=== PATIENT | female | born 1990 | race Caucasian/White ===

== ENCOUNTER 2019-09-20 17:42 | Emergency (ER) | payer OTHER, BC ==
[2019-09-20 18:07] VITALS: BP 129/74
--- NOTE | 2019-09-20 18:16 | ED Physician Documentation ---
PD HPI HEENT - Stated complaint Stated Complaint: LT EAR PAIN X3 WEEKS - Chief complaint Chief Complaint: Heent - History obtained from History obtained from: Patient - History of Present Illness Timing - onset: How many weeks ago (3 weeks of left ear pain and feeling blocked. Has tried ean pot and takes antihistamine. Tried ear drops without improvement. Pain worse the past few days and right ear hurting couple of days as well now too.) Timing - duration: Weeks (3) Timing - details: Gradual onset, Still present, Waxing and waning Location: Left ear Improves: No: Medication Worsens: No: Swalllowing Associated symptoms: Congestion. No: Fever, Swollen nodes, Cough Similar symptoms before: Has not had sx before Review of Systems Constitutional: denies: Fever, Chills, Myalgias Ears: reports: Ear pain. denies: Drainage/discharge, Tinnitus/ringing Nose: reports: Congestion. denies: Rhinorrhea / runny nose Throat: denies: Sore throat Respiratory: denies: Cough Skin: denies: Rash, Lesions PD PAST MEDICAL HISTORY - Past Medical History Cardiovascular: None Respiratory: None Neuro: None Endocrine/Autoimmune: None - Present Medications Home Medications: Ambulatory Orders Medication Instructions Recorded Confirmed Cephalexin [Keflex] 500 mg PO TID #21 capsule 09/20/19 Naproxen 375 mg PO BID #20 tablet 09/20/19 Spironolactone 25 mg PO BID 09/20/19 09/20/19 dexAMETHasone [Decadron] 4 mg PO DAILY #5 tablet 09/20/19 - Allergies Allergies/Adverse Reactions: Allergies Allergy/AdvReac Type Severity Reaction Status Date / Time No Known Drug Allergies Allergy Verified 09/20/19 17:55 PD ED PE NORMAL - Vitals Vital signs reviewed: Yes - General General: Alert and oriented X 3, No acute distress, Well developed/nourished - HEENT HEENT: Pharynx benign. No: Ears normal (right with some redness of TM. Canal appears okay. Left canal also normal. TM with redness and bulging/fluid behind. ) - Neck Neck: Supple, no meningeal sign, No adenopathy - Cardiac Cardiac: RRR, No murmur - Respiratory Respiratory: Clear bilaterally - Derm Derm: Normal color, Warm and dry - Neuro Neuro: Alert and oriented X 3, No motor deficit, Normal speech Results - Vitals Vitals: Vital Signs - 24 hr 09/20/19 17:55 Temperature 36.7 C Heart Rate 66 Respiratory 14 Rate Blood Pressure 129/74 O2 Saturation 98 Oxygen O2 Source Room air Departure - Departure Disposition: Home, Self Care Clinical Impression: Otitis media Qualifiers: Otitis media type: suppurative Chronicity: acute Laterality: left Recurrence: non-recurrent Spontaneous tympanic membrane rupture: without spontaneous rupture Qualified Code(s): H66.002 - Acute suppurative otitis media without spontaneous rupture of ear drum, left ear Condition: Stable Record reviewed to determine appropriate education?: Yes Instructions: ED Otitis Media Acute Adult Follow-Up: LG OCHOA [Primary Care Provider] - Prescriptions: Cephalexin [Keflex] 500 mg PO TID #21 capsule dexAMETHasone [Decadron] 4 mg PO DAILY #5 tablet Naproxen 375 mg PO BID #20 tablet Comments: Stay well-hydrated. Continue usual Tanya pot and allergy medicine. Use an anti-inflammatory such as naproxen or ibuprofen for pain and add Tylenol if needed. Also add Decadron steroid anti-inflammatory to help with some of the middle ear inflammation. Cephalexin 3 times a day for a week for the infection. Recheck if not improving well over the next few days. Discharge Date/Time: 09/20/19 18:57
[2019-09-20] MEDS ORDERED: DEXAMETHASONE 10 MG/ML VIAL PO STA (18:38)
[2019-09-20] MEDS ORDERED: cephALEXin 250 MG CAPSULE PO STA (18:38)
[2019-09-20] MEDS ORDERED: ACETAMINOPHEN 325 MG TABLET PO STA (18:38)
[2019-09-20] MEDS ORDERED: CHERRY SYRUP 10 ML UDC PO ONE (18:38)
== END 2019-09-20 18:57 | disposition home or self-care (01) ==
LOC: ED 17:42
DX: H66.002 Acute suppurative otitis media without spontaneous rupture of ear drum, left ear (principal)
CPT/HCPCS: 99283; 99284; A9270

== ENCOUNTER 2020-06-02 14:20 | Emergency (ER) | payer OTHER, BC ==
[2020-06-02 14:26] VITALS: BP 141/67
--- NOTE | 2020-06-02 15:00 | ED Physician Documentation ---
PD HPI HEENT - Stated complaint Stated Complaint: OBJECT IN left EAR - Chief complaint Chief Complaint: Heent - History obtained from History obtained from: Patient (The backing of an earring fell in her ear and she tried to get it out but cannot.) Review of Systems Eyes: denies: Loss of vision, Decreased vision Ears: reports: Ear pain. denies: Loss of hearing, Drainage/discharge Nose: reports: Reviewed and negative PD PAST MEDICAL HISTORY - Past Medical History Past Medical History: Yes Cardiovascular: None Respiratory: None Neuro: None Endocrine/Autoimmune: None - Past Surgical History Past Surgical History: No - Present Medications Home Medications: Ambulatory Orders Medication Instructions Recorded Confirmed Cephalexin [Keflex] 500 mg PO TID #21 capsule 09/20/19 Naproxen 375 mg PO BID #20 tablet 09/20/19 Spironolactone 25 mg PO BID 09/20/19 09/20/19 dexAMETHasone [Decadron] 4 mg PO DAILY #5 tablet 09/20/19 - Allergies Allergies/Adverse Reactions: Allergies Allergy/AdvReac Type Severity Reaction Status Date / Time No Known Drug Allergies Allergy Verified 06/02/20 14:23 - Social History Does the pt smoke?: No Smoking Status: Never smoker - Immunizations Immunizations are current?: Yes PD ED PE NORMAL - Vitals Vital signs reviewed: Yes - General General: Alert and oriented X 3, No acute distress - HEENT HEENT: Other (She has a piece of plastic deep in the left ear canal) - Neuro Neuro: Alert and oriented X 3, Normal speech Results - Vitals Vitals: Vital Signs - 24 hr 06/02/20 14:23 Temperature 36.5 C Heart Rate 62 Respiratory 16 Rate Blood Pressure 141/67 H O2 Saturation 98 Oxygen O2 Source Room air Procedures - General procedure General procedure: The plastic backing of her earring was removed with forceps without issue Departure - Departure Disposition: 01 Home, Self Care Clinical Impression: Ear foreign body Qualifiers: Encounter type: initial encounter Laterality: left Qualified Code(s): T16.2XXA - Foreign body in left ear, initial encounter Condition: Good
== END 2020-06-02 15:01 | disposition home or self-care (01) ==
LOC: ED 14:20
DX: T16.2XXA Foreign body in left ear, initial encounter (principal); X58.XXXA Exposure to other specified factors, initial encounter
CPT/HCPCS: 69200; 99281; 99282